=== PATIENT | female | born 1960 | race Caucasian/White ===

== ENCOUNTER → 2017-01-08 | Outpatient (CLI) | payer OTHER ==
--- NOTE | 2017-01-08 09:47 | REPMRS ---
Patient History The patient states she has not had a clinical breast exam in over a year. Patient is postmenopausal. Family history of breast cancer in paternal grandmother at age 50 or over. Digital Woman Screen Mammo: January 08, 2017 - Exam #: [id number] Bilateral CC and MLO view(s) were taken. Technologist: Madonna Chambers, Technologist Prior study comparison: March 09, 2015, digital woman screen mammo performed at [facility]. August 24, 2013, digital woman screen mammo performed at [facility]. January 23, 2012, digital woman screen mammo performed at [facility]. FINDINGS: There are scattered fibroglandular densities. There has been no change in the appearance of the mammogram from the prior studies. There is a mild amount of scattered fibroglandular density which is fairly symmetric. There is no interval development of dominant mass, architectural distortion, or clustered microcalcification suggestive of malignancy. ASSESSMENT: BI-RADS/ACR category 1 mammogram. Negative. Recommendation Routine screening mammogram in 1 year (for women over age 40). This mammogram was interpreted with the aid of an FDA-approved computer-aided dectection system. Electronically Signed By: Karlos Thurman MD 01/08/17 0921
== END ==
LOC: M WHC 08:51
PROVIDERS: ATTEND Family Medicine
DX: Z12.31 Encounter for screening mammogram for malignant neoplasm of breast (principal)

== ENCOUNTER → 2017-03-10 | Outpatient (CLI) | payer OTHER ==
--- NOTE | 2017-03-11 10:20 | DEXA ---
AP SPINE L1 - L4 0.848 -2.8 -1.6 LT FEMUR TOTAL 0.728 -2.2 -1.3 RT FEMUR TOTAL 0.748 -2.1 -1.1 TOTAL BODY TOTAL OTHER DUAL FEMUR FRAX* ASSESSMENT Risk factors: History of fracture (adult). Secondary osteoporosis ( premature menopause). 10 year probability of fracture Major osteoporotic fracture 17.9 % Hip fracture 4.1 % COMMENTS: There is low bone density of the right hip. There is osteoporosis of the spine. There is osteoporosis of the left hip. The decreased density of the spine does not represent a significant change. The decreased density of the left hip does not represent a significant change. The decreased density of the right hip does represent a significant change. The density of the spine has decreased 8.2% since the initial exam on 2009. The spine density has decreased 1.7% since the most recent exam on 03/09/2015. The density of the left hip has decreased 2.7% since the initial exam on 2009. The density of the left hip has decreased 1.8% since the most recent exam on 08/2015. The density of the right hip has decreased 2.1% since the initial exam on 2009. The density of the right hip has decreased 2.1% since the most recent exam on . FOLLOW-UP: Recommendation for the next bone density exam: 2 years. VALENTINE
== END ==
LOC: M WHC 10:29
PROVIDERS: ATTEND Family Medicine
DX: M81.0 Age-related osteoporosis without current pathological fracture (principal)

== ENCOUNTER → 2018-02-02 | Outpatient (CLI) | payer OTHER | LOC: M RAD 08:35 | DX: E04.2 Nontoxic multinodular goiter (principal) | CPT/HCPCS: 76536 ==

== ENCOUNTER → 2018-02-17 | Outpatient (REF) | payer OTHER ==
[2018-02-17 11:52] LABS: BASO % 0.8 % (0.0-1.0); EOS # 0.1 10^3/uL (0.0-0.50); EOS % 1.8 % (0.0-3.0); HEMATOCRIT 40.5 % (36.0-47.0); HEMOGLOBIN 13.7 g/dl (12.0-16.0); LYMPH # 1.5 10^3/uL (1.5-4.5); LYMPH % 38.3 % (24.0-44.0); MEAN CORPUSCULAR HEMOGLOBIN 30.2 pg (27.0-33.0); MEAN CORPUSCULAR HGB CONC 33.8 g/dl (32.0-36.5); MEAN CORPUSCULAR VOLUME 89.2 fl (80.0-96.0); MONO # 0.4 10^3/uL (0.0-0.8); MONO % 10.9 % (0.0-5.0); NEUTROPHILS # 1.9 10^3/uL (1.8-7.7); NEUTROPHILS % 48.2 % (36.0-66.0); PLATELET COUNT, AUTOMATED 312 10^3/uL (150-450); RED BLOOD COUNT 4.54 10^6/uL (4.00-5.40); RED CELL DISTRIBUTION WIDTH 11.3 % (11.5-14.5); WHITE BLOOD COUNT 3.9 10^3/uL (4.0-10.0)
[2018-02-17 12:20] LABS: D-DIMER QUANT < 270.0 ng/ml (<500)
[2018-02-17 12:38] LABS: CPK CREATINE PHOSPHOKINASE 73 U/L (26-192); TROPONIN I < 0.02 NG/ML (< 0.10)
[2018-02-17 12:40] LABS: MB/CK RELATIVE INDEX 1.36 (< OR =4)
[2018-02-17 12:42] LABS: TOTAL 25(OH) VITAMIN D 15.7 NG/ML (30.0-100.0)
[2018-02-17 12:43] LABS: PTH INTACT 52.8 PG/ML (18.5-88.0)
[2018-02-17 12:44] LABS: ALBUMIN 4.2 GM/DL (3.2-5.2); ALBUMIN/GLOBULIN RATIO 1.24 (1.00-1.93); ALKALINE PHOSPHATASE 99 U/L (45-117); ALT/SGPT 18 U/L (12-78); ANION GAP 7 MEQ/L (8-16); AST/SGOT 15 U/L (7-37); BILIRUBIN,TOTAL 0.4 MG/DL (0.2-1.0); BLOOD UREA NITROGEN 15 MG/DL (7-18); CARBON DIOXIDE LEVEL 30 MEQ/L (21-32); CHLORIDE LEVEL 104 MEQ/L (98-107); CREATININE FOR GFR 0.55 MG/DL (0.55-1.30); FREE T4 1.06 NG/DL (0.76-1.46); GLOMERULAR FILTRATION RATE > 60.0 (>51); GLUCOSE, FASTING 79 MG/DL (70-100); POTASSIUM SERUM 4.2 MEQ/L (3.5-5.1); SODIUM LEVEL 141 MEQ/L (136-145); TOTAL PROTEIN 7.6 GM/DL (6.4-8.2)
== END ==
LOC: M SFHCPLAZ 10:47
DX: Z12.11 Encounter for screening for malignant neoplasm of colon (principal); E55.9 Vitamin D deficiency, unspecified; I15.9 Secondary hypertension, unspecified; E04.2 Nontoxic multinodular goiter

== ENCOUNTER → 2018-02-17 | Outpatient (CLI) | payer OTHER | LOC: M SMT 11:08 | DX: I15.9 Secondary hypertension, unspecified (principal) | CPT/HCPCS: 71046 ==

== ENCOUNTER → 2018-02-23 | Outpatient (CLI) | payer OTHER | LOC: M RAD 11:42 | DX: R55 Syncope and collapse (principal) ==

== ENCOUNTER → 2018-02-24 | Outpatient (REF) | payer OTHER ==
[2018-02-27 00:07] LABS: HPV HYBRID CAPTURE II Negative (Negative)
== END ==
LOC: M SFHCWAGY 09:53
DX: Z12.4 Encounter for screening for malignant neoplasm of cervix (principal)
CPT/HCPCS: G0123

== ENCOUNTER → 2018-02-24 | Outpatient (CLI) | payer OTHER | LOC: M WHC 09:20 | DX: Z12.31 Encounter for screening mammogram for malignant neoplasm of breast (principal) | CPT/HCPCS: 77067 ==

== ENCOUNTER → 2018-07-06 | Outpatient (REF) | payer OTHER ==
[2018-07-06 12:59] LABS: EOS # 0.1 10^3/uL (0.0-0.50); EOS % 3.1 % (0.0-3.0); HEMATOCRIT 40.2 % (36.0-47.0); HEMOGLOBIN 13.5 g/dl (12.0-15.5); IMMATURE GRANULOCYTE % 0.3 % (0-3.0); LYMPH # 1.5 10^3/uL (1.5-4.5); LYMPH % 38.4 % (24.0-44.0); MEAN CORPUSCULAR HGB CONC 33.6 g/dl (32.0-36.5); MEAN CORPUSCULAR VOLUME 92.2 fl (80.0-96.0); MONO # 0.4 10^3/uL (0.0-0.8); MONO % 11.3 % (0.0-5.0); NEUTROPHILS # 1.8 10^3/uL (1.8-7.7); NEUTROPHILS % 45.9 % (36.0-66.0); PLATELET COUNT, AUTOMATED 299 10^3/uL (150-450); RED BLOOD COUNT 4.36 10^6/uL (4.00-5.40); RED CELL DISTRIBUTION WIDTH 11.5 % (11.5-14.5); WHITE BLOOD COUNT 3.9 10^3/uL (4.0-10.0)
[2018-07-06 13:13] LABS: AMORPHOUS SEDIMENT SMALL (NEGATIVE); APPEARANCE, URINE HAZY (CLEAR); BACTERIA, URINE AUTO NEGATIVE (NEGATIVE); BILIRUBIN, URINE AUTO NEGATIVE (NEGATIVE); BLOOD, URINE BLOOD NEGATIVE (NEGATIVE); COLOR, URINE YELLOW (YELLOW); GLUCOSE, URINE (UA) AUTO NEGATIVE (NEGATIVE); KETONE, URINE AUTO NEGATIVE (NEGATIVE); LEUKOCYTE ESTERASE, URINE AUTO NEGATIVE (NEGATIVE); MUCUS, URINE SMALL (NEGATIVE); NITRITE, URINE AUTO NEGATIVE (NEGATIVE); PROTEIN, URINE AUTO NEGATIVE (NEGATIVE); RBC, URINE AUTO 1 /HPF (0-3); SPECIFIC GRAVITY URINE AUTO 1.011 (1.002-1.035); SQUAMOUS EPITHELIAL CELL UR AU 0 /HPF (0-6); UROBILINOGEN, URINE AUTO 0.2 mg/dL (0.0-2.0); WBC, URINE AUTO 2 /HPF (0-3)
[2018-07-06 13:30] LABS: ALBUMIN 4.1 GM/DL (3.2-5.2); ALBUMIN/GLOBULIN RATIO 1.17 (1.00-1.93); ALKALINE PHOSPHATASE 79 U/L (45-117); ALT/SGPT 21 U/L (12-78); ANION GAP 5 MEQ/L (8-16); AST/SGOT 16 U/L (7-37); BILIRUBIN,TOTAL 0.4 MG/DL (0.2-1.0); BLOOD UREA NITROGEN 11 MG/DL (7-18); CALCIUM LEVEL 9.8 MG/DL (8.5-10.1); CARBON DIOXIDE LEVEL 32 MEQ/L (21-32); CHLORIDE LEVEL 105 MEQ/L (98-107); GLOMERULAR FILTRATION RATE > 60.0 (>51); GLUCOSE, FASTING 91 MG/DL (70-100); MAGNESIUM LEVEL 2.2 MG/DL (1.8-2.4); POTASSIUM SERUM 4.3 MEQ/L (3.5-5.1); SODIUM LEVEL 142 MEQ/L (136-145); TOTAL PROTEIN 7.6 GM/DL (6.4-8.2)
[2018-07-06 13:52] LABS: CREATININE, URINE 55.9 MG/DL; MALB URINE SIEMENS 5.4 MG/L; MAU/CREAT RATIO 9.6 MCG/MG (0.0-30.0)
[2018-07-07 14:14] LABS: H PYLORI SERUM QUANT IgG ABY 0.15 (0.00-0.79)
== END ==
LOC: M SFHCPLAZ 10:45
DX: I10 Essential (primary) hypertension (principal); K21.0 Gastro-esophageal reflux disease with esophagitis
CPT/HCPCS: 83735

== ENCOUNTER → 2019-03-01 | Outpatient (CLI) | payer OTHER ==
--- NOTE | 2019-03-01 10:23 | REPMRS ---
Patient History The patient states she had a clinical breast exam in 03/2019. Family history of breast cancer at age 50 or over in paternal grandmother, ovarian cancer at age 50 or over in paternal aunt. Digital Woman Screen Mammo: March 01, 2019 - Exam #: [id number] Bilateral CC and MLO view(s) were taken. Technologist: Suzette Lomeli, Technologist Prior study comparison: February 24, 2018, digital woman screen mammo performed at [facility]. January 08, 2017, digital woman screen mammo performed at [facility]. FINDINGS: The breast tissue is heterogeneously dense. This may lower the sensitivity of mammography. There has been no change in the appearance of the mammogram from the prior studies. There is a moderate amount of residual fibroglandular tissue which is fairly symmetric. There is no interval development of dominant mass, areas of architectural distortion, or clustered microcalcification typical of malignancy. Assessment: BI-RADS/ACR category 1 mammogram. Negative Mammogram. Recommendation Routine screening mammogram in 1 year (for women over age 40). This mammogram was interpreted with the aid of an FDA-approved computer-aided dectection system. Electronically Signed By: Freddy Partida MD 03/01/19 8371
== END ==
LOC: M WHC 08:53
PROVIDERS: ATTEND Nurse Practitioner Family
DX: Z12.31 Encounter for screening mammogram for malignant neoplasm of breast (principal)

== ENCOUNTER → 2019-08-20 | Outpatient (REF) | payer OTHER ==
[2019-08-20 13:28] LABS: ALBUMIN 4.1 GM/DL (3.2-5.2); ALT/SGPT 18 U/L (12-78); BILIRUBIN,TOTAL 0.5 MG/DL (0.2-1.0); BLOOD UREA NITROGEN 17 MG/DL (7-18); CALCIUM LEVEL 9.3 MG/DL (8.5-10.1); CARBON DIOXIDE LEVEL 31 MEQ/L (21-32); CHLORIDE LEVEL 106 MEQ/L (98-107); CHOLESTEROL LEVEL 207 MG/DL (<200); CHOLESTEROL RISK RATIO 2.524 (<5); CREATININE FOR GFR 0.64 MG/DL (0.55-1.30); FREE T4 1.08 NG/DL (0.76-1.46); GLOMERULAR FILTRATION RATE > 60.0 (>51); GLUCOSE, FASTING 82 MG/DL (70-100); HDL CHOLESTEROL 82 MG/DL (>40); LDL CHOLESTEROL 110 MG/DL (<100); NON-HDL-C 125 MG/DL; POTASSIUM SERUM 4.3 MEQ/L (3.5-5.1); SODIUM LEVEL 143 MEQ/L (136-145); TOTAL 25(OH) VITAMIN D 19.8 NG/ML (30.0-100.0); TRIGLYCERIDES LEVEL 73 MG/DL (<150)
[2019-08-20 13:29] LABS: PTH INTACT 66.8 PG/ML (18.5-88.0)
[2019-08-20 13:34] LABS: BASO # 0.1 10^3/uL (0.0-0.2); BASO % 1.3 % (0.0-1.0); EOS # 0.2 10^3/uL (0.0-0.5); EOS % 5.3 % (0.0-3.0); HEMATOCRIT 40.1 % (36.0-47.0); HEMOGLOBIN 13.4 g/dl (12.0-15.5); LYMPH # 1.7 10^3/uL (1.5-5.0); LYMPH % 44.1 % (24.0-44.0); MEAN CORPUSCULAR HEMOGLOBIN 30.5 pg (27.0-33.0); MEAN CORPUSCULAR HGB CONC 33.4 g/dl (32.0-36.5); MEAN CORPUSCULAR VOLUME 91.1 fl (80.0-96.0); MONO # 0.4 10^3/uL (0.0-0.8); MONO % 10.4 % (0.0-5.0); NEUTROPHILS # 1.4 10^3/uL (1.5-8.5); NEUTROPHILS % 38.6 % (36.0-66.0); PLATELET COUNT, AUTOMATED 293 10^3/uL (150-450); WHITE BLOOD COUNT 3.7 10^3/uL (4.0-10.0)
== END ==
LOC: M SFHCPLAZ 08:22
PROVIDERS: ATTEND Family Medicine
DX: E04.2 Nontoxic multinodular goiter (principal); D72.819 Decreased white blood cell count, unspecified; I10 Essential (primary) hypertension; E55.9 Vitamin D deficiency, unspecified

== ENCOUNTER → 2020-02-28 | Outpatient (CLI) | payer OTHER ==
--- NOTE | 2020-02-28 11:27 | REP ---
DIGITAL DIAGNOSTIC BILATERAL MAMMOGRAPHY WITH CAD, 3-D TOMOGRAPHY, AND FOCUSED LEFT BREAST SONOGRAPHY: HISTORY: Upper outer quadrant pain left breast times 1-2 months. Comparison mammography March 01, 2019, February 24, 2018, and January 08, 2017. MAMMOGRAPHIC FINDINGS: There are scattered fibroglandular densities bilaterally unchanged. There has been no change in appearance the mammogram since the prior studies. 3-D tomography imaging shows no suspicious abnormality in either breast. SONOGRAPHIC FINDINGS: Upper outer quadrant left breast is scanned. Heterogeneous fibroglandular background echotexture is seen. No mass, cyst, or suspicious shadowing or architectural distortion is seen. IMPRESSION: BIRADS 1: BI-RADS/ACR category 1 mammogram. Negative Mammogram. BIRADS category 1 negative mammographic and sonographic findings: Clinical followup is advised. This mammogram was interpreted with the aid of an FDA-approved computer-aided detection system. The patient states she had a clinical breast exam in January 2020. The patient letter being requested is m2. This patient's estimated Tyrer-Cuzick lifetime risk assessment for breast cancer is 8.7 %.
== END ==
LOC: M WHC 09:14
PROVIDERS: ATTEND Nurse Practitioner Family
DX: N64.4 Mastodynia (principal)

== ENCOUNTER → 2020-12-20 | Outpatient (CLI) | payer OTHER ==
--- NOTE | 2020-12-20 11:33 | REP ---
INDICATION: ENLARGED THYROID COMPARISON: 02/02/2018 TECHNIQUE: Partida scale and color evaluation of the thyroid gland using the linear high frequency transducer. FINDINGS: The thyroid gland is relatively normal in contour, parenchymal echogenicity and size. Isthmus measures 3 mm in width. The right lobe measures 4.8 x 1.5 x 1.6 cm and includes 3 mm upper pole cyst, 5 mm and 3 mm hypoechoic midpole nodules along with 5 mm lower pole cyst. The left lobe measures 4.3 x 1.2 x 1.3 cm and includes 8 x 5 x 6 mm complex midpole nodule with calcifications and 8 x 7 x 6 mm lower pole complex nodule with small calcifications. IMPRESSION: 1. The visible nodules on current examination and primarily the indeterminate nodules in the left lobe with calcifications remain essentially stable while few previously noted lesions on the prior examination are no longer evident on current exam. <Electronically signed by Abhinav Alanis > 12/20/20 9218
== END ==
LOC: M RAD 10:03
PROVIDERS: ATTEND Family Medicine
DX: E04.2 Nontoxic multinodular goiter (principal); R10.12 Left upper quadrant pain

== ENCOUNTER → 2020-12-20 | Outpatient (CLI) | payer OTHER ==
--- NOTE | 2020-12-20 11:27 | REP ---
INDICATION: LUQ PAIN COMPARISON: None. TECHNIQUE: Real time tello scale ultrasound examination using linear high-frequency transducer. FINDINGS: Directed ultrasound examination along the left upper quadrant subcostal region at the site of maximal pain and tenderness demonstrates normal subcutaneous tissues and musculature. No abnormal fluid collection or mass lesion. No abnormality by ultrasound identified. IMPRESSION: Unremarkable examination. No evidence for sonographic abnormality. <Electronically signed by Abhinav Alanis > 12/20/20 1129
== END ==
LOC: M RAD 10:00
PROVIDERS: ATTEND Physician Assistant Medical
DX: R10.12 Left upper quadrant pain (principal)

== ENCOUNTER → 2021-01-17 | Outpatient (CLI) | payer OTHER ==
[~2021-01-17] MED LIST: FLUT50SP33 NARES; MICA40TA PO; OLOP5DRO6 OP; TELM1TAB33 PO; TUMS500C PO
== END ==
LOC: M LABSMTC 09:39
PROVIDERS: ATTEND Anesthesiology
DX: Z01.812 Encounter for preprocedural laboratory examination (principal); Z20.822 Contact with and (suspected) exposure to COVID-19

== ENCOUNTER 2021-01-22 07:18 | Day surgery (SDC) | payer OTHER ==
[~2021-01-22] VITALS: Ht 162.6 cm; Wt 53.5 kg
[~2021-01-22 07:18] MED LIST changes: +LIDOCAINE 2% 100MG/5ML SDV (FOR ANES.) As Ordered ONE; +NS 1,000 ML IV ONE; +propofoL 200 MG/20 ML VIAL As Ordered ONE
--- OUTSIDE RECORDS SUMMARY | 2021-01-22 07:23 | CCD ---
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 Name Role Phone Dwain Allen Unavailable PROBLEMS Type Condition ICD9-CM Code UMF23-NO Code Onset Dates Condition S tatus SNOMED Code Notes Problem Age-related osteoporosis without current pathological fracture M81.0 Active 068651783 Problem Allergic rhinitis, unspecified J30.9 Active 6 6311273 Problem Gastro-esophageal reflux disease with esophagitis K21.0 Active 081286682 Problem Multinodular goiter E04.2 Active 598051324 Problem Colon cancer screening Z12.11 Active 783544461 Problem Essential hypertension I10 Active 96880807 Problem Allergic conjunctivitis of both eyes H10.13 Act ab 523875204 Problem Breast cancer screening Z12.39 Active 83643897 6 Problem Cervical spondylosis M47.812 Active 139953823 Problem Vitamin D deficiency, unspecified E55.9 Active 36511558 Problem Cervical cancer screening Z12.4 Active 909562 001 Problem Syncope, unspecified syncope type R55 Active 507371321 Problem Primary osteoarthritis of both knees M17.0 Act ab 790269101 Problem Chronic leukopenia D72.819 Active 22862696 ALLERGIES Allergen (clinical drug ingredient) Drug/Non Drug Allergy do cumented on EMR Reaction Allergy Type Onset Date Status Latex (for allergy use only) rash, blisters Drug Allergy Active Penicillin (For Allergies Use Only) rash Drug Allerg y Active ENCOUNTERS from 1960 to 2020-12-05 Encounter Location Date Provider Diagnosis [address] [id number] 04 Dec, 021 Dwain Allen Allergic rhinitis, unspecified J30.9 and Essential hypertension I10 IMMUNIZATIONS Vaccine Route Administration Date Status Influenza (18 yrs & older) Flublok IM Intramuscular Aug 27 9 Administered Influenza (6mo & up) Fluzone IM Intramuscular Jan 12, 2018 Ad ministered Influenza (6mo & up) Fluzone IM Intramuscular Sep 14, 2015 Ad ministered Influenza (6mo & up) Fluzone IM Intramuscular Sep 16, 2014 Ad ministered Influenza (6mo & up) Fluzone IM Intramuscular Jan 20, 2014 Ad ministered Influenza (6mo & up) Fluzone IM Intramuscular Sep 17, 2012 Ad ministered Influenza (6mo & up) Fluzone IM Intramuscular Dec 12, 2011 Ad ministered SOCIAL HISTORY Tobacco Use: Social History Observation Description Date Details (start date - stop date) Never Smoker Sex Assigned At : Social History Observation Description Sex Assigned At Unknown Education: Question Answer Notes Level of Education: High School Audit Question Answer Notes Total Score: 0 Interpretation: Alcohol Education Language: Question Answer Notes Languages spoken: Maori Catholic: Question Answer Notes Catholic 20 Bahai Sexual Hx: Question Answer Notes Had sex in the last 12 months (vaginal, oral, or anal)? Yes Have you ever had an STD? No with Men only Use protection? No Drug and Alcohol Question Answer Notes Total Score: 0 Interpretation: No problems reported Alcohol Screening: Question Answer Notes Did you have a drink containing alcohol in the past year? No Points 0 Interpretation Negative Tobacco Use: Question Answer Notes Are you a: never smoker never smoker REASON FOR REFERRAL No Information VITAL SIGNS No information MEDICATIONS Medication SIG (Take, Route, Frequency, Duration) Notes Start Da te End Date Status Montelukast Sodium 10 MG 1 tablet Orally at bedtime for 90 day(s) Active Fluticasone Propionate 50 MCG/ACT 2 sprays in each nos tril Nasally every morning for 90 day(s) Active Telmisartan 20 MG 1 tablet Orally every morning for 90 day(s) May, Active Pataday 0.2 % 1 gtt ou Ophthalmic Daily for 90 day(s) Active Tums Ultra 1000 1000 MG 1 tablet Orally bid for 30 day(s) Active PROCEDURES No Information RESULTS No Results REASON FOR VISIT refills MEDICAL (GENERAL) HISTORY Type Description Date Medical History osteoporosis Medical History vitamin D deficiency Medical History multinodular goiter with all nodules less than 1 cm followed by [facility] Medical History facial SK/solar lentigo Medical History leukopenia chronic Medical History lumbar DJD Medical History abnormal pap smear/ [place]. WITH LEEP 2001 Medical History GERD/reflux esphagitis- 9-EGD- with mild esophagitis, small hiatal hernia, EG junction with mild acute and moderate chronic inflammation no metaplasia, increased intraepithelial lymphocytes-[facility] Medical History hypertension, essential-02/17 17 stress echo-low risk, 10 METS- normal FC, s arrythmia-05/2018 [place] Surgical History EGD/colonoscopy with mild es ophagitis, small hiatal hernia- benign colonic biopsies, EG junction with mild acute and moderate chronic inflammation no metaplasia, increased intraepithelial lymphocytes-[facility] May 2009 Surgical History closed septoplasty done 2 to traumatic fracture-fell on face while sledding-[place] 01/2012 Surgical History LEEP- FOR ABN. PAP 2001 Hospitalization History none Goals Section No Information Health Concerns No Information MEDICAL EQUIPMENT No Information MENTAL STATUS No Information FUNCTIONAL STATUS No Information ASSESSMENTS Encounter Date Diagnosis Assessment Notes Treatment Notes Treatm ent Clinical Notes Dec, Allergic rhinitis, unspecified (ICD-10 - J30.9) Dec, Essential hypertension (ICD-10 - I10) PLAN OF TREATMENT Medication Medication Name Sig Start Date Stop Date Montelukast Sodium 10 MG 1 tablet Orally at bedtime for 90 day(s ) Pataday 0.2 % 1 gtt ou Ophthalmic Daily for 90 day(s) Tums Ultra 1000 1000 MG 1 tablet Orally bid for 30 day(s) Telmisartan 20 MG 1 tablet Orally every morning for 90 day(s) May, Fluticasone Propionate 50 MCG/ACT 2 sprays in each nos tril Nasally every morning for 90 day(s) Next Appt Details Provider Name:Dwain Allen, 2021-01-30 0 1:45:00 PM, [address] [place], [address], Insurance Providers Payer Name Payer Address Payer Phone Insured Name Patient Relati onship to Insured Coverage Start Date Coverage End Date [facility] [address] [facility] [id number] JANESSA PEREIRA [id number]
--- OUTSIDE RECORDS SUMMARY | 2021-01-22 07:23 | CCD ---
Author Author [facility] Organization [facility] Address Unknown Phone Unavailable Support Name Relationship Address Phone SLOANE SANTANA Next Of Kin [address] [place] [address] SLOANE ALCANTARA Next Of [place] [address] [place] [address] [facility] Next Of [address] [place] [address] SALMA PEREIRA Next [place] [address] [place] [address] Sloane alcantara E[place] [address] [facility] [place] [address] Unavailable SALMA PEREIRA [address] [address] [phone] Re-disclosure Warning The records that you are about to access may contain information from federally-assisted alcohol or drug abuse programs. If such information is present, then the following federally mandated warning applies: This information has been disclosed to you from records protected by federal confidentiality rules (42 CFR part 2). The federal rules prohibit you from making any further disclosure of this information unless further disclosure is expressly permitted by the written consent of the person to whom it pertains or as otherwise permitted by 42 CFR part 2. A general authorization for the release of medical or other information is NOT sufficient for this purpose. The Federal rules restrict any use of the information to criminally investigate or prosecute any alcohol or drug abuse patient.The records that you are about to access may contain highly sensitive health information, the redisclosure of which is protected by Article 27-F of the [facility] Public Health law. If you continue you may have access to information: Regarding HIV / AIDS; Provided by facilities licensed or operated by the [facility] Office of Mental Health; or Provided by the [facility] Office for People With Developmental Disabilities. If such information is present, then the following [place] mandated warning applies: This information has been disclosed to you from confidential records which are protected by state law. State law prohibits you from making any further disclosure of this information without the specific written consent of the person to whom it pertains, or as otherwise permitted by law. Any unauthorized further disclosure in violation of state law may result in a fine or [place] health care facility sentence or both. A general authorization for the release of medical or other information is NOT sufficient authorization for further disc losure. Allergies and Adverse Reactions Type Description Substance Reaction Status Data Source(s ) Drug allergy Penicillin (For Allergies Use Only) Drug allergy rash Active eCW1 ([facility]) Latex (for allergy use only) Latex (for allergy use only) La estefany (for allergy use only) rash, blisters Active eCW1 ([facility]) Encounters Encounter Providers Location Date Indications Data Source(s ) Unknown [address] [facility] [address] 12/04/2020 12:00:00 AM EST eCW1 ([facility]) Outpatient [address] [facility] [address] 06/15/2020 12:00:00 AM EDT eCW1 ([facility]) [facility] [address] [place] [address] 05/11/2020 12:00:00 AM EDT eCW1 ([facility]) [facility] [address] [place] [address] 03/02/2020 12:00:00 AM EDT eCW1 ([facility]) [facility] [address] [place] [address] 02/28/2020 12:00:00 AM EDT eCW1 ([facility]) Immunizations Vaccine Date Status Description Data Source(s) INFLUENZA VIRUS VACCINE QUADRIVALENT 2019- (6 MOS AN D UP) 09/24/2020 12:00:00 AM EDT [facility] Drugs Medications Medication Brand Name Start Date Product Form Dose Route Admi nistrative Instructions Pharmacy Instructions Status Indications Reaction Description Data Source(s) Magnesium Hydroxide 80 MG/ML Oral Suspension Milk Of Pascual gerson 11/08/2020 12:00:00 AM EST ORAL active M EDENT ([facility], ) Suprep Bowel Prep Kit Suprep Bowel Prep Kit 11/08/2020 12:00:00 AM EST active MEDENT ([facility], ) telmisartan 20 MG Oral Tablet Telmisartan 20 MG Telmisartan 20 MG 06/15/2020 12:00:00 AM EDT 1.0 {tablet} active Te lmisartan 20 MG eCW1 ([facility]) telmisartan 20 MG Oral Tablet Telmisartan 20 MG Telmisartan 20 MG 06/15/2020 12:00:00 AM EDT 1.0 {tablet} active Te lmisartan 20 MG eCW1 ([facility]) Insurance Providers Payer name Policy type / Coverage type Policy ID Covered green party ID Covered green party's relationship to jacob Policy Jacob Plan Information [facility] [id number] [facility] [id number] [facility] [id number] SP [id number] [facility] [id number] [facility] [id number] [facility] [id number] SP [id number] ANSI-Commercial [id number] ANSI-Not a Secondary Insurance [id number] ANSI-Not a Secondary Insurance [id number] ANSI-Commercial [id number] [facility] [id number] [facility] [id number] [facility] [id number] SP [id number] [place] [id number] [facility] [id number] [facility] [id number] [facility] [id number] SP [id number] [facility] [id number] SP [id number] [facility] [place] [id number] Self [id number] [employer] [id number] Problems, Conditions, and Diagnoses Code Display Name Description Problem Type Effective Dates Data Source(s) 01316313 Essential hypertension Essential hypertension Problem 11/08/2020 12:00:00 AM EST MEDENT ([facility], ) M47.812 [id number] Cervical spondylosis Problem 06/15/2020 12:0 0:00 AM EDT eCW1 ([facility]) H10.13 [id number] Allergic conjunctivitis of both eyes Prob tim 06/15/2020 12:00:00 AM EDT eCW1 ([facility]) Results ID Date Data Source [id number] 01/17/2021 09:35:00 AM EST [facility] Name Value Range Interpretation Code Description Data Nina rce(s) Supporting Document(s) SARS coronavirus 2 RNA Not Detected [facility] This lab was ordered by [facility] and reported by [facility]. ID Date Data Source MAGNESIUM LEVEL 06/19/2020 09:24:11 AM EDT eCW1 ([facility]) Name Value Range Interpretation Code Description Data Nina rce(s) Supporting Document(s) 2.1 MAGNESIUM LEVEL eCW1 ([facility]) ID Date Data Source THYROID PEROXIDASE ANTIBODY 06/19/2020 09:20:36 AM EDT eCW1 ([facility]) Name Value Range Interpretation Code Description Data Nina rce(s) Supporting Document(s) < 28.0 eCW1 ([facility]) ID Date Data Source FREE T4 & TSH PANEL 06/19/2020 09:20:34 AM EDT eCW1 ([facility]) Name Value Range Interpretation Code Description Data Nina rce(s) Supporting Document(s) 1.500 eCW1 ([facility]) 1.18 eCW1 ([facility]) ID Date Data Source VITAMIN D 25-HYDROXY 06/19/2020 09:20:30 AM EDT eCW1 ([facility]) Name Value Range Interpretation Code Description Data Nina rce(s) Supporting Document(s) 14.8 eCW1 ([facility]) ID Date Data Source Comprehensive Metabolic Profile (CMP) 06/19/2020 09:16:44 AM EDT eCW1 ([facility]) Name Value Range Interpretation Code Description Data Nina rce(s) Supporting Document(s) 12 eCW1 ([facility]) 90 eCW1 ([facility]) 0.66 eCW1 ([facility]) 3.9 eCW1 ([facility]) > 60.0 eCW1 ([facility]) 140 eCW1 ([facility]) 103 eCW1 ([facility]) 32 eCW1 ([facility]) 15 eCW1 ([facility]) 9.5 eCW1 ([facility]) 0.8 eCW1 ([facility]) 75 eCW1 ([facility]) 19 eCW1 ([facility]) 1.3 eCW1 ([facility]) 4.2 eCW1 ([facility]) 7.5 eCW1 ([facility]) ID Date Data Source PTH INTACT 06/19/2020 09:16:39 AM EDT eCW1 ([facility]) Name Value Range Interpretation Code Description Data Nina rce(s) Supporting Document(s) 56.8 eCW1 ([facility]) ID Date Data Source CBC with Differential 06/15/2020 07:15:41 AM EDT eCW1 ([facility]) Name Value Range Interpretation Code Description Data Nina rce(s) Supporting Document(s) 3.7 WHITE BLOOD COUNT eCW1 ([facility]) 4.48 RED BLOOD COUNT eCW1 ([facility]) 41.3 HEMATOCRIT eCW1 ([facility]) 13.5 HEMOGLOBIN eCW1 ([facility]) 32.7 MEAN CORPUSCULAR HGB CONC eCW1 ([facility]) 92.2 MEAN CORPUSCULAR VOLUME eCW1 ( [facility]) 30.1 MEAN CORPUSCULAR HEMOGLOBIN eC W1 ([facility]) 274 PLATELET COUNT, AUTOMATED eCW1 ([facility]) 11.2 RED CELL DISTRIBUTION WIDTH eC W1 ([facility]) 50.4 NEUTROPHILS % eCW1 ([facility]) 1.1 BASO % eCW1 ([facility]) 1.6 EOS % eCW1 ([facility]) 9.7 MONO % eCW1 ([facility]) 36.9 LYMPH % eCW1 ([facility]) 0.1 EOS # eCW1 ([facility]) 1.9 NEUTROPHILS # eCW1 ([facility]) 1.4 LYMPH # eCW1 ([facility]) 0.4 MONO # eCW1 ([facility]) 0.0 BASO # eCW1 ([facility]) Procedure Social History Code Duration Value Status Description Data Source(s ) Smoking 06/15/2020 12:00:00 AM EDT Never Smoker completed Never S moker eCW1 ([facility]) Smoking 06/15/2020 12:00:00 AM EDT Never Smoker completed Never S moker eCW1 ([facility]) Vital Signs ID Date Data Source UNK Name Value Range Interpretation Code Description Data Source(s) Body surface area Derived from formula 1.58 m2 1.58 m2 MEDENT ([facility], ) Body weight 54.886 kg 54.886 kg MEDENT ([facility], ) [place] body weight 120 [lb_av] 120 [lb_av] MEDEN T ([facility], ) Body mass index (BMI) [Ratio] 20.8 kg/m2 20.8 k g/m2 MEDENT ([facility]) Body weight 121.00 [lb_av] 121.00 [lb_av] MEDEN T ([facility]) Body height 64 [in_i] 64 [in_i] MEDENT ([facility]) 5'4" Diastolic blood pressure 82 mm[Hg] 82 mm[Hg] MEDENT ([facility]) Systolic blood pressure 138 mm[Hg] 138 mm[Hg] M EDENT ([facility]) Diastolic blood pressure mm[Hg] eCW1 ([facility]) Systolic blood pressure 150 mm[Hg] 150 mm[Hg] e CW1 ([facility]) Body temperature 97.8 [degF] 97.8 [degF] eCW1 ( [facility]) Respiratory rate 18 /min 18 /min eCW1 ([facility]) Heart rate 74 /min 74 /min eCW1 ([facility]) Body mass index (BMI) [Ratio] 21.10 kg/m2 21.10 kg/m2 eCW1 ([facility]) Body height 63.5 [in_i] 63.5 [in_i] eCW1 ([facility]) Body weight 121 [lb_av] 121 [lb_av] eCW1 ([facility]) Diastolic blood pressure 82 mm[Hg] 82 mm[Hg] eCW1 ([facility]) Systolic blood pressure 146 mm[Hg] 146 mm[Hg] e CW1 ([facility]) Body mass index (BMI) [Ratio] 22.14 kg/m2 22.14 kg/m2 eCW1 ([facility]) Body height 63.5 [in_us] 63.5 [in_us] eCW1 ([facility]) Body weight Measured 127 [lb_av] 127 [lb_av] eC W1 ([facility]) Patient Treatment Plan of Care Planned Activity Planned Date Details Description Data Source (s) telmisartan 20 MG Oral Tablet 06/15/2020 12:00:00 AM EDT eCW1 ([facility]) telmisartan 20 MG Oral Tablet 06/15/2020 12:00:00 AM EDT eCW1 ([facility])
--- OUTSIDE RECORDS SUMMARY | 2021-01-22 07:23 | CCD | Continuity of Care Document ---
Author Author Xi CERVANTES Organization Unknown Address [address] [facility] [address], [address] [place] [address] Phone [phone] Care Team Providers Care Leather Goods Maker Name Role Phone Dwain Allen M.D. AUTM [phone] Miles Garcia M.D. AUTM Problems Active Problems Provider Date Essential hypertension Aurelia A AGUS Cervantes Onset: Social History Type Date Description Comments Sex Unknown ETOH Use 1 A Month Tobacco Use Start: Unknown Patient has never smoked Allergies, Adverse Reactions, Alerts Active Allergies Reaction Severity Comments Date Penicillin 12/26/2011 Latex 12/26/2011 Milk Intolerance 11/08/2020 Medications Active Medications SIG Qnty Indications Ordering Provide r Date Suprep Bowel Prep Kit 17.5-3.13-1.6GM/177ML Solution take per doctor's bowel prep instructions. 354ml Z12.1 1 Alexandre Hernandez MD 11/08/2020 Milk Of Magnesia 1200mg/15ML Suspe nsion take 45 milliliters by mouth as directed on colonoscopy prep sheet. 355ml Z12.11 Alexandre Hernandez MD 11/08/2020 Telmisartan 20mg Tablets 1 by mouth daily at bedtime Unknown Fluticasone Propionate 50mcg/Act Suspension 2 sprays to each nostril daily Unknown Tums 500mg Chewtabs 1 tab by mouth daily Unknown Pataday 0.1% Solution prn Unknown Immunizations Description No Information Available Vital Signs Date Vital Result Comment 11/08/2020 10:36am BP Systolic 138 mmHg BP Diastolic 82 mmHg Height 64 inches 5'4" Weight 121.00 lb BMI (Body Mass Index) 20.8 kg/m2 [place] Body Weight 120 lb Weight 54.886 kg BSA (Body Surface Area) 1.58 m2 09/08/2012 8:48am BP Systolic 110 mmHg BP Diastolic 78 mmHg Height 64 inches 5'4" Weight 118.00 lb BMI (Body Mass Index) 20.3 kg/m2 [place] Body Weight 120 lb Weight 53.525 kg Results Description No Information Available Procedures Description No Information Available Medical Devices Description No Information Available Encounters Description No Information Available Assessments Date Code Description Provider 11/08/2020 Z12.11 Encounter for screening for chivo gnant neoplasm of colon AGUS Bingham 11/08/2020 R10.12 Left upper quadrant pain AGUS Bingham Plan of Treatment 11/08/2020 - AGUS Bingham* Z12.11 Encounter for screening for malignant neoplasm of colon * R10.12 Left upper quadrant pain * * New Medication:* Suprep Bowel Prep Kit 17.5-3.13-1.6 GM/177ML * Milk Of Magnesia 1200 mg/15ML * New Orders:* Colonoscopy, Ordered: 11/08/20 * Comments:* Will arrange for colonoscopy. Reviewed risks and benefits of the procedure, as well as other options, with the patient. Bowel prep procedure was discussed with patient, as well as risks and side effects associated with the bowel prep. Patient verbalized understanding of all of the above and is in agreement to proceed. Patient will seek medical attention for any acute changes. Will monitor. * Follow up:* As scheduled, sooner if needed. Functional Status Description No Information Available Mental Status Description No Information Available Referrals Refer to Reason for Referral Status Appt Date Alexandre Hernandez MD COLO SCREENING Scheduled 10/17/2020 [facility], Gastroenterology [address], [address] [place] [address] [phone]
--- NOTE | 2021-01-22 08:42 | ROOR ---
Patient Name: Xi Castellanos Procedure Date: 01/22/2021 8:18 AM Date of : 1960 Age: 60 Room: [facility] Gender: Female Note Status: Finalized Procedure: Colonoscopy Indications: Screening for colorectal malignant neoplasm Providers: Alexandre COLIN MD Referring MD: Dwain Allen MD Requesting Provider: Medicines: Monitored Anesthesia Care Complications: No immediate complications. Procedure: Pre-Anesthesia Assessment: - The heart rate, respiratory rate, oxygen saturations, blood pressure, adequacy of pulmonary ventilation, and response to care were monitored throughout the procedure. The Colonoscope was introduced through the anus and advanced to the terminal ileum, with identification of the appendiceal orifice and IC valve. The colonoscopy was performed without difficulty. The patient tolerated the procedure well. The quality of the bowel preparation was good. Findings: The perianal and digital rectal examinations were normal. A diminutive polyp was found in the sigmoid colon. The polyp was sessile. The polyp was removed with a jumbo cold forceps. Resection and retrieval were complete. Small Internal Hemorrhoids. The exam was otherwise without abnormality on direct and retroflexion views. Impression: - One diminutive polyp in the sigmoid colon, removed with a jumbo cold forceps. Resected and retrieved. - Small Internal Hemorrhoids. - The examination was otherwise normal on direct and retroflexion views. Recommendation: - Repeat colonoscopy in 5 years for surveillance. Procedure Code(s): --- Professional --- 34625, Colonoscopy, flexible; with biopsy, single or multiple Diagnosis Code(s): --- Professional --- K63.5, Polyp of colon Z12.11, Encounter for screening for malignant neoplasm of colon CPT copyright 2019 [employer]. All rights reserved. The codes documented in this report are preliminary and upon information manager review may be revised to meet current compliance requirements. Alexandre Colin MD Alexandre COLIN MD 01/22/2021 8:42:10 AM Electronically signed by Alexandre COLIN MD Number of Addenda: 0 Note Initiated On: 01/22/2021 8:18 AM Estimated Blood Loss: Estimated blood loss: none.
[2021-01-22 09:05] VITALS: BP 139/69
== END 2021-01-22 09:09 | disposition home or self-care (01) ==
LOC: M OPP 07:18
PROVIDERS: ATTEND Internal Medicine Gastroenterology
DX: Z12.11 Encounter for screening for malignant neoplasm of colon (principal); D12.5 Benign neoplasm of sigmoid colon; K64.8 Other hemorrhoids; I10 Essential (primary) hypertension; M81.0 Age-related osteoporosis without current pathological fracture; Z88.0 Allergy status to penicillin; Z91.040 Latex allergy status; Z79.899 Other long term (current) drug therapy; Z83.3 Family history of diabetes mellitus; Z82.3 Family history of stroke; Z82.49 Family history of ischemic heart disease and other diseases of the circulatory system; Z84.1 Family history of disorders of kidney and ureter; Z84.89 Family history of other specified conditions; Z83.6 Family history of other diseases of the respiratory system; Z80.3 Family history of malignant neoplasm of breast; Z80.6 Family history of leukemia

== ENCOUNTER → 2021-07-10 | Outpatient (REF) | payer OTHER ==
[~2021-07-10] MED LIST changes: -LIDOCAINE 2% 100MG/5ML SDV (FOR ANES.) As Ordered ONE; -NS 1,000 ML IV ONE; -propofoL 200 MG/20 ML VIAL As Ordered ONE
[2021-07-10 14:14] LABS: ALBUMIN 3.9 GM/DL (3.2-5.2); BLOOD UREA NITROGEN 14 MG/DL (7-18); CALCIUM LEVEL 9.1 MG/DL (8.8-10.2); CARBON DIOXIDE LEVEL 31 MEQ/L (21-32); CHLORIDE LEVEL 107 MEQ/L (98-107); CHOLESTEROL LEVEL 214 MG/DL (<200); CHOLESTEROL RISK RATIO 2.641 (<5); CREATININE FOR GFR 0.59 MG/DL (0.55-1.30); FREE T4 1.07 NG/DL (0.76-1.46); GLOMERULAR FILTRATION RATE > 60.0 (>45); GLUCOSE, FASTING 90 MG/DL (70-100); HDL CHOLESTEROL 81 MG/DL (>40); LDL CHOLESTEROL 115 MG/DL (<100); NON-HDL-C 133 MG/DL; PHOSPHORUS LEVEL 3.2 MG/DL (2.5-4.9); PTH INTACT 42.8 PG/ML (18.5-88.0); SODIUM LEVEL 142 MEQ/L (136-145); TOTAL 25(OH) VITAMIN D 57.5 NG/ML (30.0-100.0); TOTAL PROTEIN 7.1 GM/DL (6.4-8.2); TRIGLYCERIDES LEVEL 89 MG/DL (<150)
[2021-07-10 14:15] LABS: VITAMIN B12 LEVEL 363 PG/ML (247-911)
== END ==
LOC: M LABDRWAD 12:37
PROVIDERS: ATTEND Family Medicine
DX: E55.9 Vitamin D deficiency, unspecified (principal); E04.2 Nontoxic multinodular goiter; D72.819 Decreased white blood cell count, unspecified

== ENCOUNTER → 2021-08-10 | Outpatient (REF) | payer OTHER ==
[2021-08-10 13:05] LABS: BASO % 0.7 % (0.0-1.0); EOS # 0.1 10^3/uL (0.0-0.5); EOS % 3.4 % (0.0-3.0); HEMATOCRIT 40.8 % (36.0-47.0); HEMOGLOBIN 13.5 g/dl (12.0-15.5); LYMPH # 1.4 10^3/uL (1.5-5.0); LYMPH % 33.7 % (24.0-44.0); MEAN CORPUSCULAR HEMOGLOBIN 30.5 pg (27.0-33.0); MEAN CORPUSCULAR HGB CONC 33.1 g/dl (32.0-36.5); MEAN CORPUSCULAR VOLUME 92.1 fl (80.0-96.0); MONO # 0.4 10^3/uL (0.0-0.8); MONO % 10.2 % (2.0-8.0); NEUTROPHILS # 2.1 10^3/uL (1.5-8.5); NEUTROPHILS % 51.8 % (36.0-66.0); PLATELET COUNT, AUTOMATED 287 10^3/uL (150-450); RED BLOOD COUNT 4.43 10^6/uL (4.00-5.40); WHITE BLOOD COUNT 4.1 10^3/uL (4.0-10.0)
[2021-08-10 13:39] LABS: ALBUMIN 3.9 GM/DL (3.2-5.2); ALT/SGPT 23 U/L (12-78); BILIRUBIN,TOTAL 0.7 MG/DL (0.2-1.0); BLOOD UREA NITROGEN 14 MG/DL (7-18); CALCIUM LEVEL 9.3 MG/DL (8.8-10.2); CARBON DIOXIDE LEVEL 30 MEQ/L (21-32); CHLORIDE LEVEL 105 MEQ/L (98-107); CREATININE FOR GFR 0.52 MG/DL (0.55-1.30); GLOMERULAR FILTRATION RATE > 60.0 (>45); GLUCOSE, FASTING 86 MG/DL (70-100); MAGNESIUM LEVEL 2.2 MG/DL (1.8-2.4); NT-PRO BNP 110 PG/ML (<125); POTASSIUM SERUM 4.4 MEQ/L (3.5-5.1); SODIUM LEVEL 139 MEQ/L (136-145); TOTAL PROTEIN 7.2 GM/DL (6.4-8.2)
[2021-08-10 13:46] LABS: VITAMIN B12 LEVEL 383 PG/ML (247-911)
== END ==
LOC: M SFHCADAM 08:53
PROVIDERS: ATTEND Family Medicine
DX: D72.819 Decreased white blood cell count, unspecified (principal); I10 Essential (primary) hypertension

== ENCOUNTER → 2021-08-14 | Outpatient (CLI) | payer OTHER ==
--- NOTE | 2021-08-14 09:03 | DEXAMM ---
INDICATION: M[age] AGE REL OSTEOPOROSIS. COMPARISON: 03/10/2017 as well as other prior exams. TECHNIQUE: Bone density was measured using dual-energy x-ray absorptiometry (DEXA). FINDINGS: AP SPINE L1-L4 BMD 0.838 g/cm2 Young Adult T-Score -2.9 Age Matched Z-Score -1.6. LT FEMUR, TOTAL BMD 0.766 g/cm2 Young Adult T-Score -1.9 Age Matched Z-Score -0.9. LT NECK BMD 0.695 g/cm2 Young Adult T-Score -2.5 Age Matched Z-Score -1.2. RT FEMUR, TOTAL BMD 0.774 g/cm2 Young Adult T-Score -1.9 Age Matched Z-Score -0.9. RT NECK BMD 0.732 g/cm2 Young Adult T-Score -2.2 Age Matched Z-Score -0.9. IMPRESSION: There is osteoporosis of the spine. There is low bone density of the left hip. There is low bone density of the right hip. The density of the spine has decreased 9.3% since the initial exam on 01/18/2010. The density of the spine decreased 1.2% since most recent exam on 03/10/2017. The density of the left hip has increased 2.4% since initial exam on 01/18/2010. The density of the left hip has increased 5.2% since most recent exam on 03/10/2017. The density of the right hip has increased 1.3% since the initial exam on 01/18/2010. The density of the right hip has increased 3.5% since the most recent exam on 03/10/2017. FOLLOW-UP: Recommendation for the next bone density exam: 2 years. <Electronically signed by Freddy Partida > 08/14/21 0810
--- NOTE | 2021-08-14 11:27 | REPMRS ---
Patient History The patient states she has not had a clinical breast exam in over a year. Family history of breast cancer at age 50 or over in paternal grandmother, ovarian cancer at age 50 or over in paternal aunt. Patient states no breast complaints today. Patient has signed MRS History Sheet. Digital Woman Screen Mammo: August 14, 2021 - Exam #: [id number] Bilateral CC and MLO view(s) were taken. Technologist: Francoise Kerr, Technologist Prior study comparison: February 28, 2020, diagnostic bilateral mammo performed at [facility]. March 01, 2019, bilateral digital woman screen mammo performed at [facility]. FINDINGS: There are scattered fibroglandular densities. Screening. Digital screening (2D) mammography was performed bilaterally in the CC and MLO projections. Additionally, breast tomosynthesis (3D mammography) was performed bilaterally in the CC and MLO projections. Todays exam was compared to the prior exam/exams. By history, the patient has no complaints of a palpable breast abnormality or other significant breast complaints. The breasts are unchanged in size and shape. There are no israel-soft tissue densities or spiculated masses. There is no internal architectural distortion. There are no suspicious israel-calcific clusters. Skin thickening or nipple retraction is not present. IMPRESSION: BI-RADS Category 2- Benign Findings. There is no evidence of malignant alteration of the breasts. Followup examination recommended in one year. The Volpara volumetric breast density category is B, there are scattered areas of fibroglandular densities. This mammogram was read with the assistance of [employer]dy [employer],an FDA approved computer aided detection system for mammography. The lifetime Tyrer-Cuzick score is 8.4% Negative x-ray reports should not delay surgical consultation if a dominant or clinically suspicious mass is present. Not all breast cancers can be identified by mammography. Therefore, we recommend that you continue to perform regular breast self-examination and physical examination and then promptly contact your physician of any concerns or changes. Adenosis and dense breasts may obscure an underlying neoplasm. Assessment: BI-RADS/ACR category 2 mammogram. Benign Findings. Recommendation Routine screening mammogram of both breasts in 1 year. Electronically Signed By: Russel Mclaughlin DO 08/14/21 1123
== END ==
LOC: M WHC 07:20
PROVIDERS: ATTEND Family Medicine
DX: Z12.31 Encounter for screening mammogram for malignant neoplasm of breast (principal); M85.851 Other specified disorders of bone density and structure, right thigh; M85.852 Other specified disorders of bone density and structure, left thigh; D23.9 Other benign neoplasm of skin, unspecified
CPT/HCPCS: 11104; 77063; 77067; 77080; 88305; G0463

== ENCOUNTER → 2021-08-14 | Outpatient (REF) | payer OTHER | LOC: M SFHCPLAZ 13:21 | PROVIDERS: ATTEND Family Medicine | DX: D18.01 Hemangioma of skin and subcutaneous tissue (principal) ==

== ENCOUNTER → 2021-09-18 | Outpatient (REF) | payer OTHER | LOC: M SFHCWAGY 19:09 | PROVIDERS: ATTEND Advanced Practice Midwife | DX: Z12.4 Encounter for screening for malignant neoplasm of cervix (principal) | CPT/HCPCS: G0123; G0463 ==

== ENCOUNTER → 2022-04-03 | Outpatient (REF) | payer OTHER ==
[2022-04-03 17:04] LABS: BASO % 0.9 % (0.0-1.0); EOS # 0.2 10^3/uL (0.0-0.5); EOS % 3.6 % (0.0-3.0); HEMATOCRIT 40.1 % (36.0-47.0); HEMOGLOBIN 13.3 g/dl (12.0-15.5); LYMPH # 1.6 10^3/uL (1.5-5.0); LYMPH % 37.1 % (24.0-44.0); MEAN CORPUSCULAR HGB CONC 33.2 g/dl (32.0-36.5); MEAN CORPUSCULAR VOLUME 90.3 fl (80.0-96.0); MONO # 0.4 10^3/uL (0.0-0.8); MONO % 8.4 % (2.0-8.0); NEUTROPHILS # 2.2 10^3/uL (1.5-8.5); NEUTROPHILS % 49.3 % (36.0-66.0); PLATELET COUNT, AUTOMATED 291 10^3/uL (150-450); RED BLOOD COUNT 4.44 10^6/uL (4.00-5.40); WHITE BLOOD COUNT 4.4 10^3/uL (4.0-10.0)
[2022-04-03 19:02] LABS: ALT/SGPT 20 U/L (12-78); BILIRUBIN,TOTAL 0.3 MG/DL (0.2-1.0); BLOOD UREA NITROGEN 15 MG/DL (7-18); CALCIUM LEVEL 10.1 MG/DL (8.8-10.2); CARBON DIOXIDE LEVEL 30 MEQ/L (21-32); CHLORIDE LEVEL 107 MEQ/L (98-107); CREATININE FOR GFR 0.59 MG/DL (0.55-1.30); GLOMERULAR FILTRATION RATE > 60.0 (>45); GLUCOSE, FASTING 88 MG/DL (70-100); LIPASE 102 U/L (73-393); POTASSIUM SERUM 4.1 MEQ/L (3.5-5.1); SODIUM LEVEL 143 MEQ/L (136-145); TOTAL PROTEIN 7.4 GM/DL (6.4-8.2)
== END ==
LOC: M SFHCADAM 12:59
PROVIDERS: ATTEND Family Medicine
DX: K21.00 Gastro-esophageal reflux disease with esophagitis, without bleeding (principal)

== ENCOUNTER 2022-08-07 14:54 | Outpatient (CLI) | payer OTHER ==
[~2022-08-07] VITALS: Ht 162.6 cm; Wt 58.0 kg
[2022-08-07 15:00] VITALS: BP 168/83
[2022-08-07] MEDS ORDERED: ZOLEDRONIC ACID 5 MG in IV 1 EA IV ONE (15:00)
[2022-08-07] MEDS ORDERED: VITAMIN D 3 PO (15:25)
[2022-08-07] MEDS ORDERED: CIDA500T2 PO (15:30)
[2022-08-07] MEDS ORDERED: OMEP40CA4 PO (15:31)
[2022-08-07 16:00] VITALS: BP 156/82
== END 2022-08-07 16:00 | disposition home or self-care (01) ==
LOC: M INFU 14:54
PROVIDERS: ATTEND Family Medicine
DX: M81.0 Age-related osteoporosis without current pathological fracture (principal); Z88.0 Allergy status to penicillin
CPT/HCPCS: 96413; J3489

== ENCOUNTER → 2022-09-12 | Outpatient (CLI) | payer OTHER ==
[~2022-09-12] MED LIST changes: +CIDA500T2 PO; +OMEP40CA4 PO; +VITAMIN D 3 PO
== END ==
LOC: M WHC 13:29
PROVIDERS: ATTEND Advanced Practice Midwife
DX: R10.2 Pelvic and perineal pain (principal)

== ENCOUNTER → 2022-09-12 | Outpatient (CLI) | payer OTHER ==
[2022-09-12 13:54] LABS: INR 0.92; PROTHROMBIN TIME 12.6 SECONDS (12.5-14.5)
[2022-09-12 13:55] LABS: PARTIAL THROMBOPLASTIN TIME 26.2 SECONDS (24.8-34.2)
[2022-09-12 14:25] LABS: ALBUMIN 3.8 GM/DL (3.2-5.2); BLOOD UREA NITROGEN 17 MG/DL (7-18); CALCIUM LEVEL 9.1 MG/DL (8.8-10.2); CARBON DIOXIDE LEVEL 30 MEQ/L (21-32); CHLORIDE LEVEL 105 MEQ/L (98-107); CREATININE FOR GFR 0.64 MG/DL (0.55-1.30); FREE T4 1.16 NG/DL (0.76-1.46); GLOMERULAR FILTRATION RATE > 60.0 (>45); GLUCOSE, FASTING 105 MG/DL (70-100); PHOSPHORUS LEVEL 3.3 MG/DL (2.5-4.9); POTASSIUM SERUM 4.2 MEQ/L (3.5-5.1); SODIUM LEVEL 139 MEQ/L (136-145)
[2022-09-13 14:21] LABS: TOTAL 25(OH) VITAMIN D 82.3 NG/ML (30.0-100.0)
[2022-09-13 14:23] LABS: PTH INTACT 52.7 PG/ML (18.5-88.0)
[2022-09-13 14:30] LABS: VITAMIN B12 LEVEL 295 PG/ML (247-911)
== END ==
LOC: M LABDRWAD 08:03
PROVIDERS: ATTEND Family Medicine
DX: D72.819 Decreased white blood cell count, unspecified (principal); E55.9 Vitamin D deficiency, unspecified; E04.2 Nontoxic multinodular goiter

== ENCOUNTER → 2022-10-01 | Outpatient (CLI) | payer OTHER | LOC: M WHC 07:41 | PROVIDERS: ATTEND Family Medicine | DX: Z12.31 Encounter for screening mammogram for malignant neoplasm of breast (principal) ==

== ENCOUNTER → 2023-03-26 | Outpatient (REF) | payer OTHER ==
[2023-03-26 15:14] LABS: HEMATOCRIT 39.2 % (36.0-47.0)
[2023-03-26 15:15] LABS: BASO % 0.8 % (0.0-1.0); EOS # 0.1 10^3/uL (0.0-0.5); EOS % 3.7 % (0.0-3.0); HEMATOCRIT 39.5 % (36.0-47.0); LYMPH # 1.3 10^3/uL (1.5-5.0); LYMPH % 34.8 % (24.0-44.0); MEAN CORPUSCULAR HEMOGLOBIN 30.3 pg (27.0-33.0); MEAN CORPUSCULAR HGB CONC 32.9 g/dl (32.0-36.5); MEAN CORPUSCULAR VOLUME 92.1 fl (80.0-96.0); MONO # 0.4 10^3/uL (0.0-0.8); MONO % 10.2 % (2.0-8.0); NEUTROPHILS # 1.9 10^3/uL (1.5-8.5); NEUTROPHILS % 50.5 % (36.0-66.0); PLATELET COUNT, AUTOMATED 291 10^3/uL (150-450); RED BLOOD COUNT 4.29 10^6/uL (4.00-5.40); WHITE BLOOD COUNT 3.8 10^3/uL (4.0-10.0)
[2023-03-26 15:47] LABS: ALBUMIN 3.7 G/DL (3.2-5.2); ALKALINE PHOSPHATASE 68 U/L (46-116); ALT/SGPT 11 U/L (7.0-40); AST/SGOT < 8 U/L (<34); BILIRUBIN,TOTAL 0.7 MG/DL (0.3-1.2); BLOOD UREA NITROGEN 12 MG/DL (9-23); CALCIUM LEVEL 8.8 MG/DL (8.3-10.6); CARBON DIOXIDE LEVEL 30 MMOL/L (20-31); CHLORIDE LEVEL 108 MMOL/L (98-107); CREATININE FOR GFR 0.63 MG/DL (0.55-1.30); GLOMERULAR FILTRATION RATE > 60.0 (>45); GLUCOSE, FASTING 94 MG/DL (74-106); POTASSIUM SERUM 4.1 MMOL/L (3.5-5.1); SODIUM LEVEL 142 MMOL/L (136-145); TOTAL PROTEIN 6.5 G/DL (5.7-8.2)
[2023-03-26 15:50] LABS: VITAMIN B12 LEVEL 510 PG/ML (211-911)
[2023-03-28 16:09] LABS: APOLIPOPROTEIN B/A-1 RATIO 0.4 ratio (0.0-0.6); INTRINSIC FACTOR ANTIBODY 1.1 AU/mL (0.0-1.1)
== END ==
LOC: M SFHCADAM 08:12
PROVIDERS: ATTEND Family Medicine
DX: E53.8 Deficiency of other specified B group vitamins (principal); I10 Essential (primary) hypertension; E78.00 Pure hypercholesterolemia, unspecified

== ENCOUNTER → 2023-04-08 | Outpatient (REF) | payer OTHER | LOC: M SFHCPLAZ 12:44 | PROVIDERS: ATTEND Family Medicine | DX: I10 Essential (primary) hypertension (principal); D72.819 Decreased white blood cell count, unspecified ==

== ENCOUNTER → 2023-06-06 | Outpatient (CLI) | payer OTHER ==
[~2023-06-06] MED LIST changes: +E-Z-GAS II EFFERVESCENT PACKET (SODIUM BICARB./CITRIC ACID/SIMETHICONE) As Ordered ONE; +E-Z-HD 98% w/w 340GM SUSP BTL As Ordered ONE; +E-Z-PAQUE 96% w/w SUSP 176GM BTL As Ordered ONE
== END ==
LOC: M RAD 08:43
PROVIDERS: ATTEND Family Medicine
DX: K21.00 Gastro-esophageal reflux disease with esophagitis, without bleeding (principal)

== ENCOUNTER → 2023-06-24 | Outpatient (CLI) | payer OTHER ==
[~2023-06-24] MED LIST changes: -E-Z-GAS II EFFERVESCENT PACKET (SODIUM BICARB./CITRIC ACID/SIMETHICONE) As Ordered ONE; -E-Z-HD 98% w/w 340GM SUSP BTL As Ordered ONE; -E-Z-PAQUE 96% w/w SUSP 176GM BTL As Ordered ONE
== END ==
LOC: M CARPUL 08:26
PROVIDERS: ATTEND Physician Assistant
DX: I47.1 Supraventricular tachycardia (principal); R00.2 Palpitations; I35.0 Nonrheumatic aortic (valve) stenosis

== ENCOUNTER → 2023-08-12 | Outpatient (REF) | payer OTHER ==
[2023-08-12 12:58] LABS: BASO % 0.5 % (0.0-1.0); EOS # 0.1 10^3/uL (0.0-0.5); HEMOGLOBIN 12.5 g/dl (12.0-15.5); LYMPH # 1.6 10^3/uL (1.5-5.0); LYMPH % 43.1 % (24.0-44.0); MEAN CORPUSCULAR HEMOGLOBIN 29.8 pg (27.0-33.0); MEAN CORPUSCULAR HGB CONC 32.1 g/dl (32.0-36.5); MEAN CORPUSCULAR VOLUME 92.9 fl (80.0-96.0); MONO # 0.4 10^3/uL (0.0-0.8); MONO % 10.4 % (2.0-8.0); NEUTROPHILS # 1.6 10^3/uL (1.5-8.5); NEUTROPHILS % 42.7 % (36.0-66.0); PLATELET COUNT, AUTOMATED 271 10^3/uL (150-450); WHITE BLOOD COUNT 3.7 10^3/uL (4.0-10.0)
[2023-08-12 13:00] LABS: ALBUMIN 3.8 G/DL (3.2-5.2); ALKALINE PHOSPHATASE 73 U/L (46-116); ALT/SGPT 22 U/L (7.0-40); AST/SGOT 15 U/L (<34); BILIRUBIN,TOTAL 0.6 MG/DL (0.3-1.2); BLOOD UREA NITROGEN 18 MG/DL (9-23); CALCIUM LEVEL 9.1 MG/DL (8.3-10.6); CARBON DIOXIDE LEVEL 30 MMOL/L (20-31); CHLORIDE LEVEL 103 MMOL/L (98-107); CREATININE FOR GFR 0.63 MG/DL (0.55-1.30); GLOMERULAR FILTRATION RATE > 60.0 (>45); GLUCOSE, FASTING 119 MG/DL (74-106); MAGNESIUM LEVEL 1.8 MG/DL (1.8-2.4); POTASSIUM SERUM 4.3 MMOL/L (3.5-5.1); SODIUM LEVEL 140 MMOL/L (136-145); TOTAL PROTEIN 6.6 G/DL (5.7-8.2)
== END ==
LOC: M SFHCADAM 08:09
PROVIDERS: ATTEND Family Medicine
DX: I10 Essential (primary) hypertension (principal); D72.819 Decreased white blood cell count, unspecified

== ENCOUNTER → 2023-08-21 | Outpatient (CLI) | payer OTHER ==
[~2023-08-21] VITALS: Ht 162.6 cm; Wt 58.1 kg
[~2023-08-21] MED LIST changes: +ZOLEDRONIC ACID 5 MG in IV 1 EA IV ONE
[2023-08-21 14:20] VITALS: BP 159/82; O2SAT 99
[2023-08-21 15:23] VITALS: BP 163/78; O2SAT 100
== END ==
LOC: M INFU 14:01
PROVIDERS: ATTEND Family Medicine
DX: M81.0 Age-related osteoporosis without current pathological fracture (principal); Z88.0 Allergy status to penicillin; Z91.040 Latex allergy status; Z91.048 Other nonmedicinal substance allergy status
CPT/HCPCS: 96365; J3489

== ENCOUNTER → 2023-10-13 | Outpatient (CLI) | payer OTHER ==
[~2023-10-13] MED LIST changes: -ZOLEDRONIC ACID 5 MG in IV 1 EA IV ONE
== END ==
LOC: M WHC 08:55
PROVIDERS: ATTEND Family Medicine
DX: Z12.31 Encounter for screening mammogram for malignant neoplasm of breast (principal)

== ENCOUNTER → 2023-10-13 | Outpatient (REF) | payer OTHER | LOC: M SFHCPLAZ 13:16 | PROVIDERS: ATTEND Family Medicine | DX: E53.8 Deficiency of other specified B group vitamins (principal); I10 Essential (primary) hypertension; E55.9 Vitamin D deficiency, unspecified ==

== ENCOUNTER → 2023-12-02 | Outpatient (REF) | payer OTHER | LOC: M SFHCWAGY 12:56 | PROVIDERS: ATTEND Nurse Practitioner Family | DX: N73.9 Female pelvic inflammatory disease, unspecified (principal) ==

== ENCOUNTER → 2024-02-10 | Outpatient (REF) | payer OTHER ==
[2024-02-10 13:12] LABS: BASO % 0.8 % (0.0-1.0); EOS # 0.2 10^3/uL (0.0-0.5); EOS % 4.6 % (0.0-3.0); HEMATOCRIT 39.7 % (36.0-47.0); HEMOGLOBIN 13.2 g/dl (12.0-15.5); LYMPH # 1.5 10^3/uL (1.5-5.0); LYMPH % 38.9 % (24.0-44.0); MEAN CORPUSCULAR HEMOGLOBIN 30.6 pg (27.0-33.0); MEAN CORPUSCULAR HGB CONC 33.2 g/dl (32.0-36.5); MEAN CORPUSCULAR VOLUME 91.9 fl (80.0-96.0); MONO # 0.4 10^3/uL (0.0-0.8); MONO % 9.5 % (2.0-8.0); NEUTROPHILS # 1.8 10^3/uL (1.5-8.5); NEUTROPHILS % 46.2 % (36.0-66.0); PLATELET COUNT, AUTOMATED 302 10^3/uL (150-450); RED BLOOD COUNT 4.32 10^6/uL (4.00-5.40); WHITE BLOOD COUNT 3.9 10^3/uL (4.0-10.0)
[2024-02-10 13:20] LABS: ALBUMIN 3.7 G/DL (3.2-5.2); ALKALINE PHOSPHATASE 62 U/L (46-116); ALT/SGPT 10 U/L (7.0-40); AST/SGOT 14 U/L (<34); BILIRUBIN,TOTAL 0.6 MG/DL (0.3-1.2); BLOOD UREA NITROGEN 18 MG/DL (9-23); CARBON DIOXIDE LEVEL 33 MMOL/L (20-31); CHLORIDE LEVEL 105 MMOL/L (98-107); CREATININE FOR GFR 0.64 MG/DL (0.55-1.30); GLOMERULAR FILTRATION RATE > 60.0 (>45); GLUCOSE, FASTING 94 MG/DL (74-106); POTASSIUM SERUM 4.3 MMOL/L (3.5-5.1); PTH INTACT 48.6 PG/ML (18.5-88.0); SODIUM LEVEL 140 MMOL/L (136-145); TOTAL PROTEIN 6.6 G/DL (5.7-8.2)
[2024-02-10 13:22] LABS: FERRITIN 30.7 NG/ML (7.3-270.7); TOTAL 25(OH) VITAMIN D 76.1 NG/ML (20.0-100.0); VITAMIN B12 LEVEL 691 PG/ML (211-911)
[2024-02-10 13:36] LABS: HEMOGLOBIN A1c 5.1 % (4.0-6.0)
== END ==
LOC: M SFHCADAM 08:18
PROVIDERS: ATTEND Family Medicine
DX: E53.8 Deficiency of other specified B group vitamins (principal); I10 Essential (primary) hypertension; E55.9 Vitamin D deficiency, unspecified

== ENCOUNTER → 2024-03-15 | Outpatient (CLI) | payer OTHER | LOC: M WHC 14:50 | PROVIDERS: ATTEND Family Medicine | DX: E04.2 Nontoxic multinodular goiter (principal) ==

== ENCOUNTER → 2024-06-15 | Outpatient (REF) | payer OTHER ==
[2024-06-15 13:05] LABS: BASO % 0.8 % (0.0-1.0); EOS # 0.1 10^3/uL (0.0-0.5); EOS % 3.3 % (0.0-3.0); HEMATOCRIT 40.1 % (36.0-47.0); LYMPH # 1.6 10^3/uL (1.5-5.0); LYMPH % 40.4 % (24.0-44.0); MEAN CORPUSCULAR HEMOGLOBIN 30.4 pg (27.0-33.0); MEAN CORPUSCULAR HGB CONC 32.4 g/dl (32.0-36.5); MEAN CORPUSCULAR VOLUME 93.9 fl (80.0-96.0); MONO # 0.4 10^3/uL (0.0-0.8); MONO % 10.9 % (2.0-8.0); NEUTROPHILS # 1.8 10^3/uL (1.5-8.5); NEUTROPHILS % 44.3 % (36.0-66.0); PLATELET COUNT, AUTOMATED 286 10^3/uL (150-450); RED BLOOD COUNT 4.27 10^6/uL (4.00-5.40)
[2024-06-15 13:13] LABS: ALBUMIN 3.6 G/DL (3.2-5.2); ALKALINE PHOSPHATASE 76 U/L (46-116); ALT/SGPT 19 U/L (7.0-40); AST/SGOT 11 U/L (<34); BILIRUBIN,TOTAL 0.6 MG/DL (0.3-1.2); BLOOD UREA NITROGEN 17 MG/DL (9-23); CALCIUM LEVEL 9.1 MG/DL (8.3-10.6); CARBON DIOXIDE LEVEL 33 MMOL/L (20-31); CHLORIDE LEVEL 106 MMOL/L (98-107); CHOLESTEROL LEVEL 207 MG/DL (<200); CHOLESTEROL RISK RATIO 3.29 (<5); CREATININE FOR GFR 0.63 MG/DL (0.55-1.30); GLOMERULAR FILTRATION RATE > 60.0 (>45); GLUCOSE, FASTING 93 MG/DL (74-106); HDL CHOLESTEROL 62.8 MG/DL (>40); LDL CHOLESTEROL 119.2 MG/DL (<100); NON-HDL-C 144.2 MG/DL; POTASSIUM SERUM 4.3 MMOL/L (3.5-5.1); SODIUM LEVEL 141 MMOL/L (136-145); TOTAL PROTEIN 6.5 G/DL (5.7-8.2); TRIGLYCERIDES LEVEL 125 MG/DL (<150)
[2024-06-15 13:15] LABS: FERRITIN 28.9 NG/ML (7.3-270.7); THYROID STIMULATING HORMONE 3.591 uIU/ML (0.55-4.78)
[2024-06-15 13:16] LABS: FREE T4 1.31 NG/DL (0.89-1.76)
== END ==
LOC: M SFHCPLAZ 07:42
PROVIDERS: ATTEND Family Medicine
DX: D50.9 Iron deficiency anemia, unspecified (principal); I10 Essential (primary) hypertension; E78.00 Pure hypercholesterolemia, unspecified

== ENCOUNTER → 2024-06-17 | Outpatient (REF) | payer OTHER | LOC: M SFHCPLAZ 17:10 | PROVIDERS: ATTEND Family Medicine | DX: D50.9 Iron deficiency anemia, unspecified (principal); I10 Essential (primary) hypertension; E78.00 Pure hypercholesterolemia, unspecified; E55.9 Vitamin D deficiency, unspecified ==

== ENCOUNTER → 2024-10-01 | Outpatient (REF) | payer OTHER ==
[2024-10-01 14:01] LABS: ALBUMIN 3.7 G/DL (3.2-5.2); ALKALINE PHOSPHATASE 100 U/L (35-104); ALT/SGPT 25 U/L (7.0-40); AST/SGOT 16 U/L (<34); BASO % 0.9 % (0.0-1.0); BILIRUBIN,TOTAL 0.5 MG/DL (0.3-1.2); BLOOD UREA NITROGEN 20 MG/DL (9-23); CARBON DIOXIDE LEVEL 34 MMOL/L (20-31); CHLORIDE LEVEL 103 MMOL/L (98-107); CREATININE FOR GFR 0.64 MG/DL (0.55-1.30); EOS # 0.2 10^3/uL (0.0-0.5); EOS % 3.7 % (0.0-3.0); FERRITIN 39.6 NG/ML (7.3-270.7); GLOMERULAR FILTRATION RATE > 60.0 (>45); GLUCOSE, FASTING 101 MG/DL (74-106); HEMATOCRIT 39.2 % (36.0-47.0); HEMOGLOBIN 13.1 g/dl (12.0-15.5); LYMPH # 1.8 10^3/uL (1.5-5.0); MEAN CORPUSCULAR HEMOGLOBIN 30.8 pg (27.0-33.0); MEAN CORPUSCULAR HGB CONC 33.4 g/dl (32.0-36.5); MEAN CORPUSCULAR VOLUME 92.2 fl (80.0-96.0); MONO # 0.4 10^3/uL (0.0-0.8); MONO % 9.6 % (2.0-8.0); NEUTROPHILS % 44.6 % (36.0-66.0); PLATELET COUNT, AUTOMATED 293 10^3/uL (150-450); POTASSIUM SERUM 4.2 MMOL/L (3.5-5.1); RED BLOOD COUNT 4.25 10^6/uL (4.00-5.40); SODIUM LEVEL 140 MMOL/L (136-145); THYROID STIMULATING HORMONE 2.655 uIU/ML (0.55-4.78); TOTAL 25(OH) VITAMIN D 73.2 NG/ML (20.0-100.0); TOTAL PROTEIN 7.2 G/DL (5.7-8.2); WHITE BLOOD COUNT 4.4 10^3/uL (4.0-10.0)
== END ==
LOC: M LABDRWAD 13:03
PROVIDERS: ATTEND Family Medicine
DX: D50.9 Iron deficiency anemia, unspecified (principal); I10 Essential (primary) hypertension; E78.00 Pure hypercholesterolemia, unspecified; E55.9 Vitamin D deficiency, unspecified

== ENCOUNTER → 2024-11-10 | Outpatient (CLI) | payer MEDICARE, OTHER | LOC: M WHC 08:50 | PROVIDERS: ATTEND Family Medicine | DX: Z12.31 Encounter for screening mammogram for malignant neoplasm of breast (principal); M81.0 Age-related osteoporosis without current pathological fracture ==

== ENCOUNTER → 2024-12-10 | Outpatient (REF) | payer MEDICARE, OTHER ==
[2024-12-10 18:35] LABS: BASO % 0.8 % (0.0-1.0); EOS # 0.1 10^3/uL (0.0-0.5); EOS % 2.9 % (0.0-3.0); HEMATOCRIT 36.8 % (36.0-47.0); HEMOGLOBIN 12.4 g/dl (12.0-15.5); LYMPH # 1.4 10^3/uL (1.5-5.0); LYMPH % 37.5 % (24.0-44.0); MEAN CORPUSCULAR HEMOGLOBIN 30.6 pg (27.0-33.0); MEAN CORPUSCULAR HGB CONC 33.7 g/dl (32.0-36.5); MEAN CORPUSCULAR VOLUME 90.9 fl (80.0-96.0); MONO # 0.4 10^3/uL (0.0-0.8); MONO % 9.4 % (2.0-8.0); NEUTROPHILS # 1.8 10^3/uL (1.5-8.5); NEUTROPHILS % 48.9 % (36.0-66.0); PLATELET COUNT, AUTOMATED 302 10^3/uL (150-450); RED BLOOD COUNT 4.05 10^6/uL (4.00-5.40); WHITE BLOOD COUNT 3.7 10^3/uL (4.0-10.0)
[2024-12-10 19:01] LABS: ALBUMIN 3.6 G/DL (3.2-5.2); ALKALINE PHOSPHATASE 89 U/L (35-104); ALT/SGPT 22 U/L (7.0-40); AST/SGOT 13 U/L (<34); BILIRUBIN,TOTAL 0.7 MG/DL (0.3-1.2); BLOOD UREA NITROGEN 19 MG/DL (9-23); CALCIUM LEVEL 9.7 MG/DL (8.3-10.6); CARBON DIOXIDE LEVEL 32 MMOL/L (20-31); CHLORIDE LEVEL 103 MMOL/L (98-107); CREATININE FOR GFR 0.68 MG/DL (0.55-1.30); GLOMERULAR FILTRATION RATE > 60.0 (>45); GLUCOSE, FASTING 104 MG/DL (74-106); MAGNESIUM LEVEL 1.6 MG/DL (1.8-2.4); POTASSIUM SERUM 3.8 MMOL/L (3.5-5.1); PTH INTACT 29.3 PG/ML (18.5-88.0); SODIUM LEVEL 141 MMOL/L (136-145)
[2024-12-10 19:03] LABS: FERRITIN 40.2 NG/ML (7.3-270.7); FREE T4 1.32 NG/DL (0.89-1.76); THYROID STIMULATING HORMONE 1.724 uIU/ML (0.55-4.78)
[2024-12-10 19:04] LABS: TOTAL 25(OH) VITAMIN D 80.2 NG/ML (20.0-100.0)
== END ==
LOC: M SFHCPLAZ 11:36
PROVIDERS: ATTEND Family Medicine
DX: D50.9 Iron deficiency anemia, unspecified (principal); I10 Essential (primary) hypertension; E78.00 Pure hypercholesterolemia, unspecified; E55.9 Vitamin D deficiency, unspecified

== ENCOUNTER 2024-12-31 19:44 | Emergency (ER) | payer MEDICARE, OTHER ==
[2024-12-31 21:36] LABS: BASO % 0.7 % (0.0-1.0); EOS # 0.1 10^3/uL (0.0-0.5); EOS % 3.1 % (0.0-3.0); HEMATOCRIT 38.1 % (36.0-47.0); HEMOGLOBIN 12.6 g/dl (12.0-15.5); LYMPH # 1.8 10^3/uL (1.5-5.0); LYMPH % 40.5 % (24.0-44.0); MEAN CORPUSCULAR HEMOGLOBIN 30.4 pg (27.0-33.0); MEAN CORPUSCULAR HGB CONC 33.1 g/dl (32.0-36.5); MONO # 0.4 10^3/uL (0.0-0.8); MONO % 9.8 % (2.0-8.0); NEUTROPHILS % 45.5 % (36.0-66.0); PLATELET COUNT, AUTOMATED 303 10^3/uL (150-450); RED BLOOD COUNT 4.14 10^6/uL (4.00-5.40); WHITE BLOOD COUNT 4.5 10^3/uL (4.0-10.0)
[2024-12-31 22:01] LABS: CPK CREATINE PHOSPHOKINASE 82 U/L (34-145)
[2024-12-31 22:02] LABS: ALBUMIN 3.7 G/DL (3.2-5.2); ALKALINE PHOSPHATASE 83 U/L (35-104); ALT/SGPT 17 U/L (7.0-40); AST/SGOT 14 U/L (<34); BILIRUBIN,DIRECT 0.1 MG/DL (<0.4); BILIRUBIN,TOTAL 0.4 MG/DL (0.3-1.2); BLOOD UREA NITROGEN 14 MG/DL (9-23); CALCIUM LEVEL 8.7 MG/DL (8.3-10.6); CARBON DIOXIDE LEVEL 30 MMOL/L (20-31); CHLORIDE LEVEL 105 MMOL/L (98-107); CK-MB VALUE MASS < 1.0 NG/ML (<3.6); CREATININE FOR GFR 0.65 MG/DL (0.55-1.30); GLOMERULAR FILTRATION RATE > 60.0 (>45); GLUCOSE, FASTING 98 MG/DL (74-106); MB/CK RELATIVE INDEX 1.21 (< OR =4); POTASSIUM SERUM 4.2 MMOL/L (3.5-5.1); SODIUM LEVEL 143 MMOL/L (136-145); TOTAL PROTEIN 6.9 G/DL (5.7-8.2)
[2024-12-31 22:03] LABS: THYROID STIMULATING HORMONE 2.484 uIU/ML (0.55-4.78)
[2025-01-01 00:24] VITALS: TEMP 98.7
[2025-01-01] MEDS ORDERED: ISOVUE-370 76% 100ML VIAL As Ordered ONE (01:27)
[2025-01-01 02:02] LABS: CK-MB VALUE MASS < 1.0 NG/ML (<3.6)
[2025-01-01 02:04] LABS: CPK CREATINE PHOSPHOKINASE 80 U/L (34-145); MB/CK RELATIVE INDEX 1.25 (< OR =4)
[2025-01-01 03:00] VITALS: BP 120/69; O2SAT 98
== END 2025-01-01 03:08 | disposition home or self-care (01) ==
LOC: M ED 19:44
DX: R07.89 Other chest pain (principal); R00.2 Palpitations; I10 Essential (primary) hypertension; R94.31 Abnormal electrocardiogram [ECG] [EKG]; Z88.0 Allergy status to penicillin; Z91.040 Latex allergy status; Z79.899 Other long term (current) drug therapy
CPT/HCPCS: 36415; 71045; 71275; 80048; 80076; 82550; 82553; 83735; 84443; 84484; 85025; 87428; 93005; 99284; Q9967

== ENCOUNTER → 2025-01-27 | Outpatient (CLI) | payer MEDICARE, OTHER | LOC: M CARPUL 09:40 | PROVIDERS: ATTEND Family Medicine | DX: I47.20 Ventricular tachycardia, unspecified (principal); I50.32 Chronic diastolic (congestive) heart failure ==

== ENCOUNTER → 2025-02-14 | Outpatient (CLI) | payer MEDICARE, OTHER | LOC: M CARPUL 10:36 | PROVIDERS: ATTEND Family Medicine | DX: I47.20 Ventricular tachycardia, unspecified (principal) ==

== ENCOUNTER → 2025-03-25 | Outpatient (REF) | payer MEDICARE, OTHER ==
[2025-03-25 14:04] LABS: EOS # 0.2 10^3/uL (0.0-0.5); EOS % 3.9 % (0.0-3.0); HEMATOCRIT 37.4 % (36.0-47.0); HEMOGLOBIN 12.4 g/dl (12.0-15.5); LYMPH # 1.6 10^3/uL (1.5-5.0); LYMPH % 39.4 % (24.0-44.0); MEAN CORPUSCULAR HEMOGLOBIN 30.5 pg (27.0-33.0); MEAN CORPUSCULAR HGB CONC 33.2 g/dl (32.0-36.5); MEAN CORPUSCULAR VOLUME 91.9 fl (80.0-96.0); MONO # 0.5 10^3/uL (0.0-0.8); MONO % 11.1 % (2.0-8.0); NEUTROPHILS # 1.8 10^3/uL (1.5-8.5); NEUTROPHILS % 44.4 % (36.0-66.0); PLATELET COUNT, AUTOMATED 301 10^3/uL (150-450); RED BLOOD COUNT 4.07 10^6/uL (4.00-5.40); WHITE BLOOD COUNT 4.1 10^3/uL (4.0-10.0)
[2025-03-25 14:36] LABS: ALBUMIN 3.6 G/DL (3.2-5.2); ALKALINE PHOSPHATASE 90 U/L (35-104); ALT/SGPT 15 U/L (7.0-40); AST/SGOT 13 U/L (<34); BILIRUBIN,TOTAL 0.5 MG/DL (0.3-1.2); BLOOD UREA NITROGEN 17 MG/DL (9-23); CALCIUM LEVEL 9.3 MG/DL (8.3-10.6); CARBON DIOXIDE LEVEL 31 MMOL/L (20-31); CHLORIDE LEVEL 104 MMOL/L (98-107); CREATININE FOR GFR 0.66 MG/DL (0.55-1.30); FREE T4 1.26 NG/DL (0.89-1.76); GLOMERULAR FILTRATION RATE > 90.0 (>45); GLUCOSE, FASTING 93 MG/DL (74-106); MAGNESIUM LEVEL 1.8 MG/DL (1.8-2.4); POTASSIUM SERUM 4.4 MMOL/L (3.5-5.1); SODIUM LEVEL 144 MMOL/L (136-145); TOTAL PROTEIN 6.7 G/DL (5.7-8.2)
[2025-03-25 14:37] LABS: FERRITIN 24.1 NG/ML (7.3-270.7); PTH INTACT 55.3 PG/ML (18.5-88.0)
[2025-03-25 14:38] LABS: THYROID STIMULATING HORMONE 3.542 uIU/ML (0.55-4.78); TOTAL 25(OH) VITAMIN D 55.2 NG/ML (20.0-100.0)
== END ==
LOC: M LABDRWAD 13:12
PROVIDERS: ATTEND Family Medicine
DX: D50.9 Iron deficiency anemia, unspecified (principal); I50.32 Chronic diastolic (congestive) heart failure; I11.0 Hypertensive heart disease with heart failure; E78.00 Pure hypercholesterolemia, unspecified; E55.9 Vitamin D deficiency, unspecified

== ENCOUNTER → 2025-09-27 | Outpatient (REF) | payer MEDICARE, OTHER ==
[2025-09-27 14:27] LABS: ALT/SGPT 15 U/L (7.0-40); AST/SGOT 19 U/L (<34); CALCIUM LEVEL 9.7 MG/DL (8.3-10.6); CARBON DIOXIDE LEVEL 31 MMOL/L (20-31); CHLORIDE LEVEL 102 MMOL/L (98-107); CREATININE FOR GFR 0.68 MG/DL (0.55-1.30); GLOMERULAR FILTRATION RATE > 90.0 (>45); MAGNESIUM LEVEL 2.0 MG/DL (1.8-2.4); POTASSIUM SERUM 4.6 MMOL/L (3.5-5.1); PTH INTACT 53.5 PG/ML (18.5-88.0); SODIUM LEVEL 141 MMOL/L (136-145)
[2025-09-27 14:28] LABS: BASO # 0.0 10^3/uL (0.0-0.2); BASO % 0.7 % (0.0-1.0); EOS # 0.1 10^3/uL (0.0-0.5); EOS % 2.5 % (0.0-3.0); LYMPH # 1.4 10^3/uL (1.5-5.0); LYMPH % 34.9 % (24.0-44.0); MONO # 0.4 10^3/uL (0.0-0.8); MONO % 8.9 % (2.0-8.0); NEUTROPHILS # 2.1 10^3/uL (1.5-8.5); NEUTROPHILS % 52.8 % (36.0-66.0); PLATELET COUNT, AUTOMATED 368 10^3/uL (150-450)
[2025-09-27 14:30] LABS: TOTAL 25(OH) VITAMIN D 50.0 NG/ML (20.0-100.0)
[2025-09-27 14:32] LABS: FREE T4 1.38 NG/DL (0.89-1.76)
== END ==
LOC: M SFHCPLAZ 11:11
PROVIDERS: ATTEND Family Medicine
DX: D50.9 Iron deficiency anemia, unspecified (principal); I11.0 Hypertensive heart disease with heart failure; E04.2 Nontoxic multinodular goiter; E55.9 Vitamin D deficiency, unspecified; I50.32 Chronic diastolic (congestive) heart failure

== ENCOUNTER → 2025-09-27 | Outpatient (CLI) | payer MEDICARE, OTHER | LOC: M PLAIMG 11:37 | PROVIDERS: ATTEND Family Medicine | DX: M17.0 Bilateral primary osteoarthritis of knee (principal) ==